=== PATIENT | female | born 1945 | race Caucasian/White ===

== ENCOUNTER 2018-09-02 09:26 | Emergency (ER) | payer MEDICARE ==
[2018-09-02] MEDS ORDERED: Ondansetron PF 4 MG/2 ML Vial ONE (09:31)
[2018-09-02 09:41] LABS: PTT 24.3 SEC (22.9-36.1); Prothrombin Time 13.2 SEC (12.0-14.7)
[2018-09-02 09:46] LABS: Eosinophils 1 % (0-10); Lymphocytes 48 % (21-51); MDiff Complete? YES; Mean Corpuscular Hemoglobin 31.9 pg (27.0-31.0); Mean Corpuscular Volume 96.7 fL (78.0-98.0); Mean Platelet Volume 7.3 fL (7.4-10.4); Monocytes 6 % (0-10); Neutrophil 40 % (42-75); Platelet Count 310 thou/uL (130-400); RBC Distribution Width 12.2 % (11.5-14.5); Reactive Lymphocytes 5 % (0-10); Red Blood Cell (RBC) Count 3.77 mill/uL (4.20-5.40)
[2018-09-02 09:53] LABS: CKMB 0.9 ng/mL (0-6.6); Troponin I Less than 0.010 ng/mL (< 0.028)
[2018-09-02] MEDS ORDERED: Sodium Chloride 0.9% 1,000 ML ONE (09:53)
[2018-09-02 09:55] LABS: ALT (SGPT) 23 U/L (8-55); AST (SGOT) 30 U/L (5-34); Albumin 4.2 g/dL (3.4-4.8); Alkaline Phosphatase 70 U/L (40-150); Anion Gap 16 mmol/L (10-20); BUN (Urea Nitrogen) 12 mg/dL (9.8-20.1); Bilirubin, Total 0.5 mg/dL (0.2-1.2); Calc. Creatinine Clearance 0 mL/min (70-130); Calcium 9.2 mg/dL (7.8-10.44); Carbon Dioxide 21 mmol/L (23-31); Chloride 105 mmol/L (98-107); Estimated GFR-MDRD 73; Globulin 2.8 g/dL (2.4-3.5); Glucose 113 mg/dL (83-110); Potassium 3.3 mmol/L (3.5-5.1); Sodium 139 mmol/L (136-145)
--- NOTE | 2018-09-02 10:02 | CT ---
CT HEAD NONCONTRAST: History: Altered mental status. Syncope. FINDINGS: No comparison. Hyperdense fluid is present throughout the subarachnoid space of each cerebral hemisphere and extends into the posterior fossa. Diffuse effacement of the cerebral sulci. Machado white junctions are maintai bennett. Ventricles are minimally distended. No mass effect is evident. No hyperdense fluid is seen withi n the ventricles. IMPRESSION: 1. Large amount of large spread acute intracranial hemorrhage. Cause not evident. Ruptured aneurysm i s the most common cause. 2. Mild diffuse cerebral edema. Findings were called to Dr. Bradford in [place] [facility] at 0937 hours. Code CR POS: SJ
--- NOTE | 2018-09-02 17:57 | ER ---
DATE OF SERVICE: 09/02/2018 Please refer to the patient's electronic medical record for further details of her visit. In summary, the patient presents with altered mental status with sudden onset of acute severe headache. On arrival, her GCS was 13 due to eyes closed and being slightly disoriented. She was maintaining her airway protective reflexes, though vomited several times immediately upon arrival. Her mouth was cleared with suctioning as she was generally very weak, but again, was guarding her airway throughout her stay. She was able to answer simple questions and follow simple commands. She was taken directly to the CT scanner, where imaging revealed subarachnoid hemorrhage. Air ambulance had been called prior to the patient's arrival. She was in no respiratory distress and remained hemodynamically stable throughout her ER stay. EKG revealed nonspecific T-wave changes without acute ischemia. The patient denies taking any blood thinners, but cannot remember her regular medications or what she takes them for. She specifically denies history of hypertension. She does report a history of migraine headaches, which are different than her current headache. No focal neurologic deficits were apparent on physical exam. She does have general weakness particularly of her legs, but is able to dorsi and plantar flex her ankles and toes and has symmetric optical glass silverer strength. I discussed her case with Dr. Velásquez, who accepts transferring her to [facility]. I also discussed her case with Josh MACK, with Neurosurgical Service, who recommends against seizure prophylaxis and requests blood pressure to be titrated to a systolic of 140 or less. Because of this, a Cardene drip was initiated. I also discussed her case with Dr. Manish Mart who accepts her in transfer as well for definitive treatment. The patient was in stable condition with a guarded prognosis at the time of transfer. Job ID: [id number] [facility]
== END 2018-09-02 10:00 | disposition short-term general hospital (02) ==
LOC: MADERS 09:26
DX: I60.9 Nontraumatic subarachnoid hemorrhage, unspecified (principal)
CPT/HCPCS: 36415; 70450; 80053; 82553; 83880; 84484; 85025; 85610; 85730; 93005; 96374; 96375; J2405; J7050

== ENCOUNTER 2018-09-21 14:26 | Inpatient (IN) | payer MEDICARE ==
[2018-09-21] MEDS: Atorvastatin Calcium 10 MG TAB PO SCH (21:14)
[2018-09-21] MEDS: valACYclovir 500 MG TAB PO SCH (21:15)
[2018-09-21] MEDS: Acetaminophen 325 MG TAB PO PRN (21:17)
--- NOTE | 2018-09-21 21:25 | HP ---
REASON FOR ADMISSION: Generalized weakness s/p subarachnoid hemorrhage and prolonged hospitalization. HISTORY OF PRESENT ILLNESS: This is a pleasant 73-year-old female with past medical history significant for hypertension, hyperlipidemia, hypothyroidism, who presented to [facility] Room on 09/02/2018, complaining of the worst headache of her life. She underwent CT of the head in the emergency room that showed a large amount of intracranial hemorrhage with ruptured aneurysm as the most common cause. She was transferred to [facility] and underwent a CT angiography that revealed the source as a ruptured right posterior cerebral artery aneurysm. She underwent a coil procedure that same day by Dr. Mart and was admitted to the CCU. The following day, due to ongoing hydrocephalus she underwent a right external ventricular drain placement by FREDERICK Rico. Patient's post- operative course has been complicated by generalized weakness and occasional disorientation. The patient inadvertently dislodged her V/P drain and had to have this replaced intraoperatively on 09/17/18 with laparoscopic placement of permanent intra- abdominal drain. Patient reportedly tolerated this procedure well. Nephrology was consulted on 09/18/2018 due to persistent hyponatremia postoperatively. The patient was recommended to have a high sodium diet to help control this. Her sodium was last checked yesterday morning and was at 132 and seems to have stabilized between 132 and 135 since her surgery. Lastly, she appears to have been started on Valtrex on 09/19/18 for herpes zoster to her lower back region. The patient was since stabilized for discharge to rehab and admitted today and seen today with family at the bedside. Family expresses no concerns. The patient continues to have some disorientation at times, but is at present alert and oriented x 3. She has no complaints other than a slight headache. The patient states, she has had somewhat of a decreased appetite, but otherwise has been feeling reasonably well. Prior to her injury, she was independent on ADLs and used no assistive devices. PAST MEDICAL HISTORY: 1. Hypothyroidism. 2. Hyperlipidemia. 3. Depression. PAST SURGICAL HISTORY: 1. Hysterectomy. 2. Coil aneurysm procedure on 09/02/2018 of right posterior cerebral artery. 3. Right external ventricular drain placement on 09/03/2018. 4. V/P shunt with laparoscopic placement of permanent intraabdominal drain ALLERGIES: NONE. SOCIAL HISTORY: The patient lives at home with her . She is retired. She does not have any advance directives. She is a nonsmoker and nondrinker. It is unclear who her POA is. MEDICATIONS UPON TRANSFER: 1. Valtrex 1000 mg t.i.d. 2. Estrace 0.5 mg once daily. 3. Levothyroxine 25 mcg once daily. 4. Tylenol 650 mg q.6h p.r.n. 5. Pravastatin 80 mg at bedtime. 6. Fluoxetine 20 mg once daily. 7. Fish oil 1000 mg once daily. REVIEW OF SYSTEMS: Ten-point review of systems was completed and was negative other than mentioned above. PHYSICAL EXAMINATION: VITAL SIGNS: Temperature is 98.1, blood pressure is 138/63, heart rate is 81, respirations 22, and O2 saturation 95% on room air. GENERAL: She is alert and oriented x3 at this time, but for the nurses was a bit more disoriented. Her mentation seems to wax and wane. She is calm and cooperative. HEENT: Pupils are equally round and reactive to light. Extraocular movements are intact. Sclerae are nonicteric. Oropharynx is moist with poor dentition noted. NECK: Supple without lymphadenopathy or thyromegaly. CARDIOVASCULAR: Heart is regular rate and rhythm. No murmurs. RESPIRATORY: Lungs are clear to auscultation bilaterally. No distress. No wheezes. ABDOMEN: Soft, nontender and nondistended with normoactive bowel sounds. EXTREMITIES: Negative for clubbing, cyanosis or edema. NEUROLOGIC: The patient is very weak. She has strength 5/5 in all four extremities, but has been unable to stand on her own or ambulate independently. She is somewhat disoriented and this seems to wax and wane, but no focal deficits are noted. PSYCH: Negative for depression or anxiety. SKIN: Positive for right-sided scalp PLASTIC DESIGN APPLIER shunt with syed in place that are well approximated. No drainage with some localized swelling. LABS AND IMAGING: No new labs and imaging for today. ASSESSMENT: 1. Subarachnoid hemorrhage, status post coil procedure and PLASTIC DESIGN APPLIER shunt placement. 2. Generalized weakness and deconditioning. 3. Hyponatremia. 4. Normocytic anemia. 5. Hyperlipidemia. 6. Hypertension. 7. Herpes zoster. 8. Hypothyroidism. PLAN: The patient will be admitted to swing bed for physical therapy and occupational therapy. Blood pressure will continue to be monitored closely with goal of SBP <160. She was not discharged on any anti-hypertensives and I expect this will need to be adjusted. The patient has had a prolonged hospitalization thus far and therefore will likely take significant amount of time to return to her baseline. She does seem to have some delirium that waxes and wanes, which will need to be monitored closely. At present, she is non-agitated and calm. The patient otherwise will be continued on her home medications as well as Valtrex until 09/23 for Herpes Zoster. We will check her electrolytes in the morning to monitor sodium levels. A 2-week follow up appointment with her neurosurgeon, Dr. Mcdermott will be arranged as well. DISPOSITION: I anticipate somewhat prolonged hospitalization given the severity of her weakness and deconditioning at this point. We will reevaluate on a weekly basis her progression with goal of returning home upon discharge with Home Healthcare if needed. Job ID: [id number] [facility]
[2018-09-22 00:19] LABS: Bilirubin Negative (Negative); Blood, Urine Negative (Negative); Glucose, Urine (Dipstick) Negative (Negative); Leukocyte Trace (Negative); Nitrite Negative (Negative); Protein, Urine (Dipstick) Negative (Neg-Trace); Specific Gravity, Urine 1.015 (1.005-1.030); pH, Urine 6.5 (5.0-9.0)
[2018-09-22 00:28] LABS: Clarity Hazy (Clear)
[2018-09-22 00:29] LABS: Bacteria/HPF 4+ HPF (None Seen); RBC/HPF 0-3 HPF (0-3); Squamous Epithelial 0-3 HPF (0-3)
[2018-09-22 05:11] LABS: #Eosinphils 0.2 thou/uL (0.0-0.7); #Lymphocytes 0.6 thou/uL (1.20-3.40); #Monocytes 0.5 thou/uL (0.11-0.59); %Basophils 0.7 % (0.0-1.0); %Eosinophils 3.2 % (0.0-10.0); %Lymphocytes 8.9 % (21.0-51.0); %Monocytes 7.9 % (0.0-10.0); %Neutrophils 79.3 % (42.0-75.0); Hemoglobin 10.3 g/dL (12.0-16.0); Mean Corpuscular HGB CONC 33.5 g/dL (32.0-36.0); Mean Corpuscular Hemoglobin 32.5 pg (27.0-31.0); Mean Platelet Volume 5.9 fL (7.4-10.4); Platelet Count 372 thou/uL (130-400); RBC Distribution Width 12.7 % (11.5-14.5); Red Blood Cell (RBC) Count 3.17 mill/uL (4.20-5.40); White Blood Cell (WBC) Count 6.3 thou/uL (4.8-10.8)
[2018-09-22 05:22] LABS: Anion Gap 15 mmol/L (10-20); BUN (Urea Nitrogen) 10 mg/dL (9.8-20.1); Calc. Creatinine Clearance 82 mL/min (70-130); Calcium 9.2 mg/dL (7.8-10.44); Carbon Dioxide 23 mmol/L (23-31); Chloride 102 mmol/L (98-107); Estimated GFR-MDRD 90; Glucose 101 mg/dL (83-110); Potassium 3.9 mmol/L (3.5-5.1); Sodium 136 mmol/L (136-145)
[2018-09-22] MEDS: Levothyroxine Sodium 25 MCG TAB PO SCH (05:58)
[2018-09-22] MEDS ORDERED: Amlodipine 5 MG TAB PO SCH (07:30)
[2018-09-22] MEDS ORDERED: cloNIDine 0.1 MG TAB PO PRN (07:30)
[2018-09-22] MEDS: Estradiol 1 MG TAB PO SCH (07:46)
[2018-09-22] MEDS: valACYclovir 500 MG TAB PO SCH ×3 (07:47→20:31)
[2018-09-22] MEDS: Fish Oil 1,000 MG CAP PO SCH (07:47)
[2018-09-22] MEDS: FLUoxetine HCl 20 MG CAP PO SCH (07:47)
[2018-09-22] MEDS ORDERED: Docusate 100 MG CAP PO SCH (18:00)
[2018-09-22] MEDS: Acetaminophen 325 MG TAB PO PRN (19:43)
[2018-09-22] MEDS: Atorvastatin Calcium 10 MG TAB PO SCH (20:30)
[2018-09-22] MEDS: Docusate 100 MG CAP PO SCH (20:31)
[2018-09-23] MEDS: Levothyroxine Sodium 25 MCG TAB PO SCH (05:17)
[2018-09-23] MEDS: Acetaminophen 325 MG TAB PO PRN ×2 (05:17→16:50)
[2018-09-23] MEDS: valACYclovir 500 MG TAB PO SCH ×3 (08:14→20:19)
[2018-09-23] MEDS: FLUoxetine HCl 20 MG CAP PO SCH (08:14)
[2018-09-23] MEDS: Amlodipine 5 MG TAB PO SCH (08:14)
[2018-09-23] MEDS: Estradiol 1 MG TAB PO SCH (08:14)
[2018-09-23] MEDS: Fish Oil 1,000 MG CAP PO SCH (08:15)
[2018-09-23] MEDS: Polyethylene Glycol 3350 17 GM Packet PO SCH (08:15)
[2018-09-23] MEDS ORDERED: Fioricet 325/50/40 mg Tablet PO SCH (18:30)
[2018-09-23] MEDS: Atorvastatin Calcium 10 MG TAB PO SCH (20:20)
[2018-09-23] MEDS: Docusate 100 MG CAP PO SCH (20:20)
[2018-09-24] MEDS: Acetaminophen 325 MG TAB PO PRN ×3 (03:05→20:33)
[2018-09-24] MEDS: Levothyroxine Sodium 25 MCG TAB PO SCH (05:36)
[2018-09-24] MEDS: Amlodipine 5 MG TAB PO SCH (08:10)
[2018-09-24] MEDS: Estradiol 1 MG TAB PO SCH (08:10)
[2018-09-24] MEDS: Polyethylene Glycol 3350 17 GM Packet PO SCH (08:11)
[2018-09-24] MEDS: FLUoxetine HCl 20 MG CAP PO SCH (08:11)
[2018-09-24] MEDS: Fish Oil 1,000 MG CAP PO SCH (08:11)
[2018-09-24] MEDS: Docusate 100 MG CAP PO SCH (20:32)
[2018-09-24] MEDS: Atorvastatin Calcium 10 MG TAB PO SCH (20:32)
[2018-09-24] MEDS: Nitrofurantoin Macrocrystal 50 MG CAP PO SCH (20:33)
[2018-09-25] MEDS: Levothyroxine Sodium 25 MCG TAB PO SCH (05:16)
[2018-09-25 05:19] LABS: Hemoglobin 10.1 g/dL (12.0-16.0); Mean Corpuscular Hemoglobin 31.9 pg (27.0-31.0); Mean Corpuscular Volume 96.7 fL (78.0-98.0); Mean Platelet Volume 5.6 fL (7.4-10.4); Platelet Count 404 thou/uL (130-400); RBC Distribution Width 13.1 % (11.5-14.5); Red Blood Cell (RBC) Count 3.17 mill/uL (4.20-5.40); White Blood Cell (WBC) Count 6.2 thou/uL (4.8-10.8)
[2018-09-25 05:28] LABS: MDiff Complete? YES; Manual Diff?? YES; Neutrophil 61 % (42-75)
[2018-09-25 05:29] LABS: Anisocytosis SLIGHT = 6-15 cells (100X) (0-5/hpf); Band 7 % (5-11); Eosinophils 2 % (0-10); Lymphocytes 18 % (21-51); Monocytes 12 % (0-10); Platelet Morphology Comment Appears Adequate
[2018-09-25 05:30] LABS: Anion Gap 13 mmol/L (10-20); BUN (Urea Nitrogen) 13 mg/dL (9.8-20.1); Calc. Creatinine Clearance 87 mL/min (70-130); Calcium 9.3 mg/dL (7.8-10.44); Carbon Dioxide 27 mmol/L (23-31); Chloride 101 mmol/L (98-107); Estimated GFR-MDRD Greater than 90; Glucose 93 mg/dL (83-110); Potassium 3.7 mmol/L (3.5-5.1); Sodium 137 mmol/L (136-145)
[2018-09-25] MEDS: Acetaminophen 325 MG TAB PO PRN (07:48)
[2018-09-25] MEDS: Ondansetron ODT 4 MG TAB PO PRN (07:51)
[2018-09-25] MEDS: Nitrofurantoin Macrocrystal 50 MG CAP PO SCH ×2 (08:39→20:27)
[2018-09-25] MEDS: Amlodipine 5 MG TAB PO SCH (08:39)
[2018-09-25] MEDS: Estradiol 1 MG TAB PO SCH (08:39)
[2018-09-25] MEDS: Polyethylene Glycol 3350 17 GM Packet PO SCH (08:39)
[2018-09-25] MEDS: Fish Oil 1,000 MG CAP PO SCH (08:40)
[2018-09-25] MEDS: FLUoxetine HCl 20 MG CAP PO SCH (08:40)
[2018-09-25] MEDS ORDERED: Amlodipine 5 MG TAB PO SCH ×2 (12:20→12:45)
[2018-09-25] MEDS: Atorvastatin Calcium 10 MG TAB PO SCH (20:26)
[2018-09-25] MEDS: Docusate 100 MG CAP PO SCH (20:27)
[2018-09-26] MEDS: Levothyroxine Sodium 25 MCG TAB PO SCH (05:28)
[2018-09-26] MEDS: Acetaminophen 325 MG TAB PO PRN ×2 (05:32→20:37)
[2018-09-26] MEDS: Nitrofurantoin Macrocrystal 50 MG CAP PO SCH ×2 (09:42→20:38)
[2018-09-26] MEDS: Amlodipine 5 MG TAB PO SCH (09:42)
[2018-09-26] MEDS: Polyethylene Glycol 3350 17 GM Packet PO SCH (09:42)
[2018-09-26] MEDS: Estradiol 1 MG TAB PO SCH (09:43)
[2018-09-26] MEDS: FLUoxetine HCl 20 MG CAP PO SCH (09:43)
[2018-09-26] MEDS: Fish Oil 1,000 MG CAP PO SCH (09:43)
[2018-09-26] MEDS: Docusate 100 MG CAP PO SCH (20:38)
[2018-09-26] MEDS: Atorvastatin Calcium 10 MG TAB PO SCH (20:38)
[2018-09-27] MEDS: Levothyroxine Sodium 25 MCG TAB PO SCH (05:31)
[2018-09-27] MEDS: Fish Oil 1,000 MG CAP PO SCH (08:36)
[2018-09-27] MEDS: Nitrofurantoin Macrocrystal 50 MG CAP PO SCH ×2 (08:36→21:06)
[2018-09-27] MEDS: Amlodipine 5 MG TAB PO SCH (08:37)
[2018-09-27] MEDS: FLUoxetine HCl 20 MG CAP PO SCH (08:37)
[2018-09-27] MEDS: Estradiol 1 MG TAB PO SCH (08:37)
[2018-09-27] MEDS: Polyethylene Glycol 3350 17 GM Packet PO SCH (08:38)
[2018-09-27] MEDS: Acetaminophen 325 MG TAB PO PRN (09:53)
[2018-09-27] MEDS: Ondansetron ODT 4 MG TAB PO PRN (18:40)
[2018-09-27] MEDS ORDERED: Acetaminophen 500 MG TAB PO PRN (18:55)
[2018-09-27] MEDS ORDERED: Acetaminophen 500 MG TAB PO SCH (19:00)
--- NOTE | 2018-09-27 20:42 | CT ---
NONCONTRAST CT HEAD: Date: 09-27-18 History: Severe headache with vomiting post ventriculoperitoneal shunt placement on 09-18-18. FINDINGS: There has been interval placement of a ventriculoperitoneal shunt catheter entering via a right front al approach and extending posteriorly, inferiorly, and medially with tip seen overlying the most late ral aspect of the anterior portion of the third ventricle. There has been interval resolution of the previously seen hydrocephalus. Previously seen intraventricular hemorrhage noted on the prior exam is not visualized on this examination. There is a small amount of gas seen within the anterior horn right lateral ventricle as well as in th e temporal horn right lateral ventricle which may be related to recent placement of the ventriculoper itoneal shunt catheter. There is a low density area seen adjacent to the ventriculoperitoneal shunt catheter in the right ant erior frontal lobe which may be related to edema due to placement of the catheter. Previously seen subarachnoid hemorrhage bilaterally is not definitely seen on this examination, floresita tible with expected revolutionary changes of end blood products. No subdural collection is appreciate d. There is no acute cortical infarction identified. 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 Skin clips are seen at the right anterior frontal region as well as the right posterolateral parietal region related to placement of ventriculoperitoneal shunt catheter. IMPRESSION: 1. Interval placement of ventriculoperitoneal shunt catheter compared to study on 09-17-18 with inter jorge resolution of hydrocephalus. 2. Low density area seen in the right anterior frontal lobe also seen on the prior study but decrease d in size and likely related to an area of mild edema from prior ventriculoscopy catheter placement. There is a small low density area seen in the midline anterior to the corpus callosum which may repre sent a small amount of edema in this region due to placement of the ventriculoperitoneal shunt cathet er. 3. Resolution of intraventricular hemorrhage with expected evolutionary changes in subarachnoid hemor rhage. No new areas of hemorrhage are seen on this exam. 4. Aneurysm coil mass seen in a supraclinoid location to the right of midline, also present on prior study. 5. Small amount of pneumocephalus, anterior horn right lateral ventricle and temporal horn right late ral ventricle, likely related to recent placement of ventriculoperitoneal shunt catheter. POS: NASRA
[2018-09-27] MEDS ORDERED: Promethazine HCl 25 MG/ML VIAL IVPB PRN (20:58)
[2018-09-27] MEDS ORDERED: Ondansetron PF 4 MG/2 ML Vial IVP PRN (20:59)
[2018-09-27] MEDS ORDERED: Promethazine HCl 25 MG/ML VIAL IVPB SCH (21:00)
[2018-09-27] MEDS: Atorvastatin Calcium 10 MG TAB PO SCH (21:06)
[2018-09-27] MEDS: Docusate 100 MG CAP PO SCH (21:06)
[2018-09-27] MEDS: Acetaminophen 500 MG TAB PO PRN (23:07)
[2018-09-28] MEDS: Levothyroxine Sodium 25 MCG TAB PO SCH (05:28)
[2018-09-28] MEDS: Amlodipine 5 MG TAB PO SCH (10:26)
[2018-09-28] MEDS: Fish Oil 1,000 MG CAP PO SCH (10:27)
[2018-09-28] MEDS: FLUoxetine HCl 20 MG CAP PO SCH (10:27)
[2018-09-28] MEDS: Polyethylene Glycol 3350 17 GM Packet PO SCH (10:27)
[2018-09-28] MEDS: Nitrofurantoin Macrocrystal 50 MG CAP PO SCH ×2 (10:27→20:16)
[2018-09-28] MEDS: Estradiol 1 MG TAB PO SCH (10:27)
[2018-09-28] MEDS ORDERED: Promethazine 25 MG TAB PO PRN (12:22)
[2018-09-28] MEDS ORDERED: Sodium Chloride 0.9% 1,000 ML IV SCH (12:30)
[2018-09-28 12:50] LABS: #Basophils 0.1 thou/uL (0.0-0.2); #Eosinphils 0.1 thou/uL (0.0-0.7); #Lymphocytes 1.6 thou/uL (1.20-3.40); #Monocytes 0.5 thou/uL (0.11-0.59); #Neutrophils 4.7 thou/uL (1.40-6.50); %Basophils 1.2 % (0.0-1.0); %Lymphocytes 23.2 % (21.0-51.0); %Neutrophils 66.7 % (42.0-75.0); Hemoglobin 10.8 g/dL (12.0-16.0); Mean Corpuscular HGB CONC 32.8 g/dL (32.0-36.0); Mean Corpuscular Volume 97.4 fL (78.0-98.0); Mean Platelet Volume 5.2 fL (7.4-10.4); Platelet Count 494 thou/uL (130-400); RBC Distribution Width 13.3 % (11.5-14.5); Red Blood Cell (RBC) Count 3.39 mill/uL (4.20-5.40); White Blood Cell (WBC) Count 7.1 thou/uL (4.8-10.8)
[2018-09-28 13:04] LABS: ALT (SGPT) 159 U/L (8-55); AST (SGOT) 35 U/L (5-34); Albumin 3.5 g/dL (3.4-4.8); Alkaline Phosphatase 498 U/L (40-150); Anion Gap 14 mmol/L (10-20); BUN (Urea Nitrogen) 14 mg/dL (9.8-20.1); Bilirubin, Total 0.3 mg/dL (0.2-1.2); Calc. Creatinine Clearance 75 mL/min (70-130); Calcium 9.6 mg/dL (7.8-10.44); Carbon Dioxide 28 mmol/L (23-31); Chloride 100 mmol/L (98-107); Estimated GFR-MDRD 81; Glucose 133 mg/dL (83-110); Potassium 3.7 mmol/L (3.5-5.1); Protein, Total 6.5 g/dL (6.0-8.3); Sodium 138 mmol/L (136-145)
[2018-09-28] MEDS: Atorvastatin Calcium 10 MG TAB PO SCH (20:16)
[2018-09-28] MEDS: Docusate 100 MG CAP PO SCH (20:17)
[2018-09-29] MEDS: Levothyroxine Sodium 25 MCG TAB PO SCH (05:30)
[2018-09-29] MEDS: Polyethylene Glycol 3350 17 GM Packet PO SCH (08:18)
[2018-09-29] MEDS: FLUoxetine HCl 20 MG CAP PO SCH (08:19)
[2018-09-29] MEDS: Amlodipine 5 MG TAB PO SCH (08:19)
[2018-09-29] MEDS: Nitrofurantoin Macrocrystal 50 MG CAP PO SCH ×2 (08:19→20:19)
[2018-09-29] MEDS: Estradiol 1 MG TAB PO SCH (08:19)
[2018-09-29] MEDS: Fish Oil 1,000 MG CAP PO SCH (08:19)
[2018-09-29] MEDS: Acetaminophen 500 MG TAB PO PRN (10:00)
[2018-09-29] MEDS: Ketorolac Tromethamine 30 MG/ML VIAL IVP PRN (16:52)
[2018-09-29] MEDS: Atorvastatin Calcium 10 MG TAB PO SCH (20:19)
[2018-09-29] MEDS: Docusate 100 MG CAP PO SCH (20:20)
[2018-09-30] MEDS: Acetaminophen 500 MG TAB PO PRN ×3 (04:09→16:46)
[2018-09-30] MEDS: Levothyroxine Sodium 25 MCG TAB PO SCH (05:39)
[2018-09-30] MEDS: Fish Oil 1,000 MG CAP PO SCH (08:32)
[2018-09-30] MEDS: Estradiol 1 MG TAB PO SCH (08:32)
[2018-09-30] MEDS: Polyethylene Glycol 3350 17 GM Packet PO SCH (08:32)
[2018-09-30] MEDS: FLUoxetine HCl 20 MG CAP PO SCH (08:32)
[2018-09-30] MEDS: Nitrofurantoin Macrocrystal 50 MG CAP PO SCH ×2 (08:32→20:30)
[2018-09-30] MEDS: Amlodipine 5 MG TAB PO SCH (08:33)
[2018-09-30] MEDS: Ketorolac Tromethamine 30 MG/ML VIAL IVP PRN (09:19)
[2018-09-30] MEDS: Docusate 100 MG CAP PO SCH (20:31)
[2018-09-30] MEDS: Atorvastatin Calcium 10 MG TAB PO SCH (20:31)
[2018-10-01] MEDS: Levothyroxine Sodium 25 MCG TAB PO SCH (06:00)
[2018-10-01] MEDS: Acetaminophen 500 MG TAB PO PRN ×3 (07:53→20:52)
[2018-10-01] MEDS: Polyethylene Glycol 3350 17 GM Packet PO SCH (09:38)
[2018-10-01] MEDS: Estradiol 1 MG TAB PO SCH (09:39)
[2018-10-01] MEDS: Fish Oil 1,000 MG CAP PO SCH (09:39)
[2018-10-01] MEDS: FLUoxetine HCl 20 MG CAP PO SCH (09:39)
[2018-10-01] MEDS: Amlodipine 5 MG TAB PO SCH (09:39)
[2018-10-01] MEDS: Nitrofurantoin Macrocrystal 50 MG CAP PO SCH ×2 (09:39→20:51)
[2018-10-01] MEDS ORDERED: Sodium Chloride 0.9% 1,000 ML BAG ONE (11:42)
[2018-10-01] MEDS: Atorvastatin Calcium 10 MG TAB PO SCH (20:51)
[2018-10-01] MEDS: Docusate 100 MG CAP PO SCH (20:51)
[2018-10-02] MEDS: Levothyroxine Sodium 25 MCG TAB PO SCH (05:26)
[2018-10-02] MEDS: Amlodipine 5 MG TAB PO SCH (08:38)
[2018-10-02] MEDS: Fish Oil 1,000 MG CAP PO SCH (08:40)
[2018-10-02] MEDS: Polyethylene Glycol 3350 17 GM Packet PO SCH (08:40)
[2018-10-02] MEDS: FLUoxetine HCl 20 MG CAP PO SCH (08:40)
[2018-10-02] MEDS: Estradiol 1 MG TAB PO SCH (08:40)
[2018-10-02] MEDS: Docusate 100 MG CAP PO SCH (21:17)
[2018-10-02] MEDS: Acetaminophen 500 MG TAB PO PRN (21:17)
[2018-10-02] MEDS: Atorvastatin Calcium 10 MG TAB PO SCH (21:17)
[2018-10-03] MEDS: Levothyroxine Sodium 25 MCG TAB PO SCH (05:41)
[2018-10-03] MEDS: Amlodipine 5 MG TAB PO SCH (08:48)
[2018-10-03] MEDS: Polyethylene Glycol 3350 17 GM Packet PO SCH (08:48)
[2018-10-03] MEDS: Estradiol 1 MG TAB PO SCH (08:49)
[2018-10-03] MEDS: Fish Oil 1,000 MG CAP PO SCH (08:49)
[2018-10-03] MEDS: FLUoxetine HCl 20 MG CAP PO SCH (08:50)
[2018-10-03] MEDS: Atorvastatin Calcium 10 MG TAB PO SCH (20:32)
[2018-10-03] MEDS: Acetaminophen 500 MG TAB PO PRN (20:32)
[2018-10-03] MEDS: Docusate 100 MG CAP PO SCH (20:33)
[2018-10-04] MEDS: Levothyroxine Sodium 25 MCG TAB PO SCH (05:31)
[2018-10-04] MEDS: Estradiol 1 MG TAB PO SCH (08:12)
[2018-10-04] MEDS: FLUoxetine HCl 20 MG CAP PO SCH (08:12)
[2018-10-04] MEDS: Polyethylene Glycol 3350 17 GM Packet PO SCH (08:13)
[2018-10-04] MEDS: Fish Oil 1,000 MG CAP PO SCH (08:13)
[2018-10-04] MEDS: Amlodipine 5 MG TAB PO SCH (08:13)
[2018-10-04] MEDS: Docusate 100 MG CAP PO SCH (20:31)
[2018-10-04] MEDS: Atorvastatin Calcium 10 MG TAB PO SCH (20:31)
[2018-10-04] MEDS: Acetaminophen 500 MG TAB PO PRN (20:31)
[2018-10-05 05:05] LABS: #Basophils 0.1 thou/uL (0.0-0.2); #Eosinphils 0.2 thou/uL (0.0-0.7); #Lymphocytes 1.7 thou/uL (1.20-3.40); #Monocytes 0.7 thou/uL (0.11-0.59); #Neutrophils 6.7 thou/uL (1.40-6.50); %Basophils 0.8 % (0.0-1.0); %Eosinophils 2.2 % (0.0-10.0); %Lymphocytes 17.8 % (21.0-51.0); %Monocytes 7.5 % (0.0-10.0); %Neutrophils 71.6 % (42.0-75.0); Hemoglobin 10.3 g/dL (12.0-16.0); Mean Corpuscular HGB CONC 33.6 g/dL (32.0-36.0); Mean Corpuscular Hemoglobin 32.8 pg (27.0-31.0); Mean Corpuscular Volume 97.8 fL (78.0-98.0); Platelet Count 326 thou/uL (130-400); Red Blood Cell (RBC) Count 3.15 mill/uL (4.20-5.40); White Blood Cell (WBC) Count 9.4 thou/uL (4.8-10.8)
[2018-10-05] MEDS: Levothyroxine Sodium 25 MCG TAB PO SCH (05:17)
[2018-10-05 05:19] LABS: ALT (SGPT) 38 U/L (8-55); AST (SGOT) 17 U/L (5-34); Albumin 3.4 g/dL (3.4-4.8); Alkaline Phosphatase 260 U/L (40-150); Anion Gap 13 mmol/L (10-20); BUN (Urea Nitrogen) 16 mg/dL (9.8-20.1); Bilirubin, Total 0.4 mg/dL (0.2-1.2); Calc. Creatinine Clearance 76 mL/min (70-130); Calcium 9.3 mg/dL (7.8-10.44); Carbon Dioxide 25 mmol/L (23-31); Chloride 106 mmol/L (98-107); Estimated GFR-MDRD Greater than 90; Globulin 2.7 g/dL (2.4-3.5); Glucose 93 mg/dL (83-110); Potassium 3.8 mmol/L (3.5-5.1); Protein, Total 6.1 g/dL (6.0-8.3); Sodium 140 mmol/L (136-145)
[2018-10-05] MEDS: FLUoxetine HCl 20 MG CAP PO SCH (09:04)
[2018-10-05] MEDS: Amlodipine 5 MG TAB PO SCH (09:04)
[2018-10-05] MEDS: Fish Oil 1,000 MG CAP PO SCH (09:04)
[2018-10-05] MEDS: Polyethylene Glycol 3350 17 GM Packet PO SCH (09:05)
[2018-10-05] MEDS: Estradiol 1 MG TAB PO SCH (09:05)
[2018-10-05] MEDS: Atorvastatin Calcium 10 MG TAB PO SCH (21:17)
[2018-10-05] MEDS: Docusate 100 MG CAP PO SCH (21:17)
[2018-10-06] MEDS: Levothyroxine Sodium 25 MCG TAB PO SCH (06:10)
[2018-10-06] MEDS: Polyethylene Glycol 3350 17 GM Packet PO SCH (08:38)
[2018-10-06] MEDS: FLUoxetine HCl 20 MG CAP PO SCH (08:38)
[2018-10-06] MEDS: Fish Oil 1,000 MG CAP PO SCH (08:38)
[2018-10-06] MEDS: Estradiol 1 MG TAB PO SCH (08:38)
[2018-10-06] MEDS: Amlodipine 5 MG TAB PO SCH (08:39)
[2018-10-06] MEDS: Atorvastatin Calcium 10 MG TAB PO SCH (20:37)
[2018-10-06] MEDS: Acetaminophen 500 MG TAB PO PRN (20:38)
[2018-10-06] MEDS: Docusate 100 MG CAP PO SCH (20:41)
[2018-10-07] MEDS: Levothyroxine Sodium 25 MCG TAB PO SCH (05:55)
[2018-10-07] MEDS: Estradiol 1 MG TAB PO SCH (08:39)
[2018-10-07] MEDS: Polyethylene Glycol 3350 17 GM Packet PO SCH (08:39)
[2018-10-07] MEDS: FLUoxetine HCl 20 MG CAP PO SCH (08:39)
[2018-10-07] MEDS: Fish Oil 1,000 MG CAP PO SCH (08:39)
[2018-10-07] MEDS: Amlodipine 5 MG TAB PO SCH (08:40)
[2018-10-07 12:19] VITALS: BMI 20.3
[2018-10-07] MEDS: Atorvastatin Calcium 10 MG TAB PO SCH (20:21)
[2018-10-07] MEDS: Docusate 100 MG CAP PO SCH (20:21)
[2018-10-07] MEDS: Acetaminophen 500 MG TAB PO PRN (20:22)
[2018-10-08] MEDS: Levothyroxine Sodium 25 MCG TAB PO SCH (05:17)
[2018-10-08] MEDS: Amlodipine 5 MG TAB PO SCH (08:17)
[2018-10-08] MEDS: Estradiol 1 MG TAB PO SCH (08:17)
[2018-10-08] MEDS: Fish Oil 1,000 MG CAP PO SCH (08:17)
[2018-10-08] MEDS: Polyethylene Glycol 3350 17 GM Packet PO SCH (08:17)
[2018-10-08] MEDS: FLUoxetine HCl 20 MG CAP PO SCH (08:18)
[2018-10-08] MEDS: Atorvastatin Calcium 10 MG TAB PO SCH (20:11)
[2018-10-08] MEDS: Docusate 100 MG CAP PO SCH (20:11)
[2018-10-08] MEDS: Acetaminophen 500 MG TAB PO PRN (20:11)
[2018-10-09] MEDS: Levothyroxine Sodium 25 MCG TAB PO SCH (05:03)
[2018-10-09] MEDS: Estradiol 1 MG TAB PO SCH (08:53)
[2018-10-09] MEDS: Fish Oil 1,000 MG CAP PO SCH (08:53)
[2018-10-09] MEDS: Amlodipine 5 MG TAB PO SCH (08:53)
[2018-10-09] MEDS: Polyethylene Glycol 3350 17 GM Packet PO SCH (08:54)
[2018-10-09] MEDS: FLUoxetine HCl 20 MG CAP PO SCH (08:54)
[2018-10-09] MEDS: Docusate 100 MG CAP PO SCH (20:30)
[2018-10-09] MEDS: Atorvastatin Calcium 10 MG TAB PO SCH (20:30)
[2018-10-09] MEDS: Acetaminophen 500 MG TAB PO PRN (20:30)
[2018-10-10] MEDS: Levothyroxine Sodium 25 MCG TAB PO SCH (05:27)
[2018-10-10] MEDS: Estradiol 1 MG TAB PO SCH (08:13)
[2018-10-10] MEDS: Amlodipine 5 MG TAB PO SCH (08:13)
[2018-10-10] MEDS: FLUoxetine HCl 20 MG CAP PO SCH (08:14)
[2018-10-10] MEDS: Polyethylene Glycol 3350 17 GM Packet PO SCH (08:14)
[2018-10-10] MEDS: Fish Oil 1,000 MG CAP PO SCH (08:14)
[2018-10-10] MEDS: Atorvastatin Calcium 10 MG TAB PO SCH (21:14)
[2018-10-10] MEDS: Docusate 100 MG CAP PO SCH (21:14)
[2018-10-11] MEDS: Levothyroxine Sodium 25 MCG TAB PO SCH (06:07)
[2018-10-11] MEDS: Estradiol 1 MG TAB PO SCH (08:58)
[2018-10-11] MEDS: Fish Oil 1,000 MG CAP PO SCH (08:58)
[2018-10-11] MEDS: Polyethylene Glycol 3350 17 GM Packet PO SCH (08:58)
[2018-10-11] MEDS: FLUoxetine HCl 20 MG CAP PO SCH (08:59)
[2018-10-11] MEDS: Amlodipine 5 MG TAB PO SCH (08:59)
[2018-10-11] MEDS: Acetaminophen 500 MG TAB PO PRN (20:27)
[2018-10-11] MEDS: Atorvastatin Calcium 10 MG TAB PO SCH (20:27)
[2018-10-11] MEDS: Ondansetron ODT 4 MG TAB PO PRN (20:27)
[2018-10-11] MEDS: Docusate 100 MG CAP PO SCH (20:27)
[2018-10-12] MEDS: Levothyroxine Sodium 25 MCG TAB PO SCH (05:34)
[2018-10-12] MEDS: Amlodipine 5 MG TAB PO SCH (08:44)
[2018-10-12] MEDS: Polyethylene Glycol 3350 17 GM Packet PO SCH (08:44)
[2018-10-12] MEDS: Estradiol 1 MG TAB PO SCH (08:44)
[2018-10-12] MEDS: FLUoxetine HCl 20 MG CAP PO SCH (08:44)
[2018-10-12] MEDS: Fish Oil 1,000 MG CAP PO SCH (08:44)
[2018-10-12] MEDS: Atorvastatin Calcium 10 MG TAB PO SCH (20:12)
[2018-10-12] MEDS: Docusate 100 MG CAP PO SCH (20:12)
[2018-10-13] MEDS: Levothyroxine Sodium 25 MCG TAB PO SCH (05:46)
[2018-10-13 07:49] VITALS: TEMP 98.4
[2018-10-13] MEDS: Polyethylene Glycol 3350 17 GM Packet PO SCH (08:31)
[2018-10-13] MEDS: Estradiol 1 MG TAB PO SCH (08:31)
[2018-10-13] MEDS: Fish Oil 1,000 MG CAP PO SCH (08:32)
[2018-10-13] MEDS: FLUoxetine HCl 20 MG CAP PO SCH (08:32)
[2018-10-13] MEDS: Amlodipine 5 MG TAB PO SCH (08:32)
[2018-10-13 08:36] VITALS: BP 112/57
--- NOTE | 2018-10-13 13:08 | DIS ---
DATE OF ADMISSION: 09/21/2018 DATE OF DISCHARGE: 10/13/2018 PRIMARY CARE PHYSICIAN: Jairo Russ MD. PRIMARY DIAGNOSIS: Generalized weakness and deconditioning. SECONDARY DIAGNOSES: 1. Subarachnoid hemorrhage. 2. Normocytic anemia. 3. Hypertension. 4. Hyponatremia, resolved. 5. Transaminitis, resolved. HOSPITAL COURSE: This is a pleasant 73-year-old female who was in her usual state of health until she presented to [facility] [facility] on 09/02/2018 with worst headache of her life type symptoms. The patient was found to have a significant subarachnoid hemorrhage and underwent aneurysm clipping by the neurosurgeon on 09/02/2018, followed by SLEEVE TAILOR shunt the next day. The patient inadvertently had this shunt removed and then replaced again on 09/17/2018. She was admitted to [facility] on 09/21/2018 for planned physical therapy and occupational therapy due to her prolonged hospitalization resulting in significant generalized weakness. On admission, the patient was having some waxing and waning mentation as well as pretty severe weakness and deconditioning. She was requiring significant assistance and barely ambulatory at that point. The patient has actually done quite well with physical therapy and she is now walking with a walker between 1200 and 1300 feet without any significant unsteadiness. She has been bathing and toileting mostly independently and reports having significant family support at home. The patient is requesting to be discharged, which I was in agreement with today. On the day of discharge, her vital signs have remained stable and she is in her baseline state of health. On admission, the patient did have some issues with hyponatremia that have since resolved as well as the patient did have a mild viral illness during her hospitalization resulting in a transaminitis that has also subsequently resolved. She is being discharged home with her new blood pressure medication and otherwise will be resuming her normal home medications. MEDICATIONS UPON DISCHARGE: 1. Amlodipine 10 mg once daily. 2. Pravastatin 80 mg once daily. 3. Estradiol 0.5 mg once daily. 4. Fish oil 1000 mg once daily. 5. Fluoxetine 20 mg once daily. 6. Levothyroxine 25 mcg once daily. ACTIVITY UPON DISCHARGE: As tolerated with a cane or walker with fall risk precautions. DIET UPON DISCHARGE: She is to resume a regular diet. FOLLOWUP: She will schedule 2 week followup with her primary care physician as well as keep her as scheduled appointment with her neurosurgeon, Dr. Mart. Job ID: [id number]
== END 2018-10-13 11:05 | disposition home or self-care (01) | DRG 949 ==
LOC: MADMS 15:23
PROVIDERS: ADMIT Family Medicine; ATTEND Family Medicine
DX: Z48.811 Encounter for surgical aftercare following surgery on the nervous system (principal); E87.1 Hypo-osmolality and hyponatremia; R53.81 Other malaise; D64.9 Anemia, unspecified; B02.9 Zoster without complications; R74.0 Nonspecific elevation of levels of transaminase and lactic acid dehydrogenase [LDH]; I10 Essential (primary) hypertension; E78.5 Hyperlipidemia, unspecified; E03.9 Hypothyroidism, unspecified; F32.9 Major depressive disorder, single episode, unspecified; Z90.710 Acquired absence of both cervix and uterus; Z86.79 Personal history of other diseases of the circulatory system; Z98.890 Other specified postprocedural states; Z79.899 Other long term (current) drug therapy
CPT/HCPCS: 36415; 70450; 80048; 80053; 81003; 81015; 85025; 87077; 87086; 87186; A4353; G8978-GP-CM; G8979-GP-CJ; G8987-GO-CM; G8988-GO-CI; G8996-GN-CI; G8997-GN-CI; G8998-GN-CI; J1885; J2550; J7050; Q0162

== ENCOUNTER 2023-04-27 15:56 | Emergency (ER) | payer MEDICARE ==
[2023-04-27] MEDS ORDERED: Morphine 4 MG/ML VIAL ONE (16:58)
[2023-04-27] MEDS ORDERED: Ondansetron PF 4 MG/2 ML Vial ONE (16:58)
[2023-04-27 17:14] LABS: Bilirubin Negative (Negative); Blood, Urine Small (Negative); Glucose, Urine (Dipstick) Negative (Negative); Ketone, Urine Negative (Negative); Leukocyte Moderate (Negative); Nitrite Negative (Negative); Protein, Urine (Dipstick) Negative (Neg-Trace); Specific Gravity, Urine 1.015 (1.005-1.030); Urobilinogen 0.2 mg/dL (Less than 2)
[2023-04-27 17:16] LABS: Clarity Hazy (Clear)
[2023-04-27 17:22] LABS: #Basophils 0.1 thou/uL (0.0-0.2); #Lymphocytes 2.2 thou/uL (1.20-3.40); #Monocytes 0.5 thou/uL (0.11-0.59); #Neutrophils 4.3 thou/uL (1.40-6.50); %Basophils 1.6 % (0.0-1.0); %Eosinophils 0.6 % (0.0-10.0); %Lymphocytes 31.1 % (21.0-51.0); %Monocytes 7.4 % (0.0-10.0); %Neutrophils 59.2 % (42.0-75.0); Hemoglobin 13.8 g/dL (12.0-16.0); Mean Corpuscular HGB CONC 33.8 g/dL (32.0-36.0); Mean Corpuscular Hemoglobin 31.9 pg (27.0-31.0); Mean Corpuscular Volume 94.3 fl (78.0-98.0); Platelet Count 395 10x3/uL (130-400); RBC Distribution Width 12.9 % (11.5-14.5); Red Blood Cell (RBC) Count 4.31 mill/uL (4.20-5.40); White Blood Cell (WBC) Count 7.2 10x3/uL (4.8-10.8)
[2023-04-27 17:26] LABS: Bacteria/HPF Rare-Few HPF (None Seen); CAUTI Indications for Culture Pelvic or flank pain; RBC/HPF 0-3 HPF (0-3); Urine Culture Reflex No No
[2023-04-27 17:29] LABS: ALT (SGPT) 12 U/L (8-55); AST (SGOT) 17 U/L (5-34); Acetaminophen Less than 10 mcg/mL (10.0-30.0); Albumin 4.9 g/dL (3.4-4.8); Alcohol Less than 10.0 mg/dL (Less than 10); Alkaline Phosphatase 74 U/L (40-110); Anion Gap 20 mmol/L (10-20); BUN (Urea Nitrogen) 7 mg/dL (9.8-20.1); Bilirubin, Total 0.7 mg/dL (0.2-1.2); Calc. Creatinine Clearance 0 mL/min (70-130); Calcium 10.3 mg/dL (7.8-10.44); Carbon Dioxide 21 mmol/L (23-31); Chloride 98 mmol/L (98-107); Estimated GFR 49; Globulin 2.9 g/dL (2.4-3.5); Glucose 98 mg/dL (83-110); Lipase 43 U/L (8-78); Protein, Total 7.8 g/dL (5.8-8.1); Salicylate Less than 8.0 mg/dL (15.0-30.0); Sodium 135 mmol/L (136-145)
[2023-04-27] MEDS ORDERED: Morphine 2 MG/ML VIAL ONE (18:20)
[2023-04-27] MEDS ORDERED: Sodium Chloride 0.9% 1,000 ML ONE (18:20)
== END 2023-04-27 20:14 | disposition short-term general hospital (02) ==
LOC: MADERS 15:56
DX: R10.9 Unspecified abdominal pain (principal); R07.89 Other chest pain; F32.A Depression, unspecified; N28.9 Disorder of kidney and ureter, unspecified; E03.9 Hypothyroidism, unspecified; I11.0 Hypertensive heart disease with heart failure; I50.9 Heart failure, unspecified; K21.9 Gastro-esophageal reflux disease without esophagitis; E78.00 Pure hypercholesterolemia, unspecified; Z79.899 Other long term (current) drug therapy
CPT/HCPCS: 36415; 71045; 74176; 80053; 80307; 81001; 83690; 84484; 85025; 93005; 96374; 96375; 96376; J2270; J2272; J2405; J7050

== ENCOUNTER 2023-05-14 15:36 | Emergency (ER) | payer MEDICARE ==
[~2023-05-14 15:36] MED LIST: Iopamidol 370 76% 100 ML VIAL ONE
[2023-05-14] MEDS ORDERED: Ondansetron PF 4 MG/2 ML Vial ONE (16:41)
[2023-05-14] MEDS ORDERED: Pantoprazole 40 MG VIAL ONE (16:41)
[2023-05-14] MEDS ORDERED: Famotidine 20 MG TAB ONE (16:41)
[2023-05-14 17:13] LABS: #Basophils 0.1 thou/uL (0.0-0.2); #Eosinphils 0.1 thou/uL (0.0-0.7); #Lymphocytes 1.5 thou/uL (1.20-3.40); #Monocytes 0.5 thou/uL (0.11-0.59); #Neutrophils 3.8 thou/uL (1.40-6.50); %Basophils 1.5 % (0.0-1.0); %Eosinophils 1.1 % (0.0-10.0); %Lymphocytes 25.5 % (21.0-51.0); %Monocytes 8.7 % (0.0-10.0); %Neutrophils 63.2 % (42.0-75.0); Hematocrit 38.4 % (36.0-47.0); Hemoglobin 13.1 g/dL (12.0-16.0); Mean Corpuscular HGB CONC 34.1 g/dL (32.0-36.0); Mean Corpuscular Volume 93.9 fl (78.0-98.0); Platelet Count 318 10x3/uL (130-400); RBC Distribution Width 12.6 % (11.5-14.5); Red Blood Cell (RBC) Count 4.09 mill/uL (4.20-5.40)
[2023-05-14 17:26] LABS: ALT (SGPT) 11 U/L (8-55); AST (SGOT) 10 U/L (5-34); Albumin 4.7 g/dL (3.4-4.8); Alkaline Phosphatase 78 U/L (40-110); Anion Gap 19 mmol/L (10-20); BUN (Urea Nitrogen) 16 mg/dL (9.8-20.1); Bilirubin, Total 0.7 mg/dL (0.2-1.2); Calc. Creatinine Clearance 0 mL/min (70-130); Calcium 10.7 mg/dL (7.8-10.44); Carbon Dioxide 21 mmol/L (23-31); Chloride 99 mmol/L (98-107); Estimated GFR 38; Globulin 2.5 g/dL (2.4-3.5); Glucose 93 mg/dL (83-110); Lipase 48 U/L (8-78); Protein, Total 7.2 g/dL (5.8-8.1); Sodium 135 mmol/L (136-145)
[2023-05-14 17:29] LABS: Troponin I 0.028 ng/mL (< 0.028)
[2023-05-14] MEDS ORDERED: Sodium Chloride 0.9% 1,000 ML ONE (18:18)
[2023-05-14 18:46] LABS: Bilirubin Negative (Negative); Blood, Urine Trace (Negative); Glucose, Urine (Dipstick) Negative (Negative); Ketone, Urine Negative (Negative); Leukocyte Large (Negative); Nitrite Negative (Negative); Protein, Urine (Dipstick) Negative (Neg-Trace); Urobilinogen 0.2 mg/dL (Less than 2)
[2023-05-14 18:48] LABS: Clarity Slightly Cloudy (Clear)
[2023-05-14 18:50] LABS: CAUTI Indications for Culture Acute Hematuria
[2023-05-14 18:55] LABS: Bacteria/HPF 4+ HPF (None Seen)
[2023-05-14 18:57] LABS: Urine Culture Reflex No No
[2023-05-14 19:38] LABS: Anion Gap 17 mmol/L (10-20); BUN (Urea Nitrogen) 14 mg/dL (9.8-20.1); Calc. Creatinine Clearance 0 mL/min (70-130); Calcium 9.4 mg/dL (7.8-10.44); Carbon Dioxide 18 mmol/L (23-31); Chloride 104 mmol/L (98-107); Estimated GFR 45; Glucose 86 mg/dL (83-110); Potassium 3.8 mmol/L (3.5-5.1); Sodium 135 mmol/L (136-145)
[2023-05-14] MEDS ORDERED: Aspirin Chewable 81 MG TAB ONE (19:48)
[2023-05-14] MEDS ORDERED: cefTRIAXone (ROCEPHIN) 1 GM VIAL ONE (19:51)
[2023-05-15 01:16] LABS: Troponin I Less than 0.010 ng/mL (< 0.028)
== END 2023-05-14 21:40 | disposition short-term general hospital (02) ==
LOC: MADERS 15:36
DX: R10.816 Epigastric abdominal tenderness (principal); N30.00 Acute cystitis without hematuria; R11.0 Nausea; R79.89 Other specified abnormal findings of blood chemistry; I11.0 Hypertensive heart disease with heart failure; I50.9 Heart failure, unspecified; E03.9 Hypothyroidism, unspecified; K21.9 Gastro-esophageal reflux disease without esophagitis; E78.00 Pure hypercholesterolemia, unspecified; Z79.899 Other long term (current) drug therapy
CPT/HCPCS: 36415; 71045; 74177; 80053; 81001; 83605; 83690; 84484; 85025; 93005; 96361; 96374; 96375; C9113; J0696; J2405; J7050; Q9967